=== PATIENT | female | born 1970 | race Caucasian/White ===

== ENCOUNTER 2017-04-16 07:10 | Day surgery (SDC) | payer MEDICARE, MEDICAID ==
[2017-04-16] MEDS ORDERED: Midazolam 1 MG/ML 2 ML SDV IVPUSH ONE (08:10)
[2017-04-16] MEDS ORDERED: Lactated Ringers 1,000 ML IV SCH (08:45)
[2017-04-16] MEDS ORDERED: Propofol 200 MG/20 ML SDV IV ONE (09:00)
[2017-04-16] MEDS ORDERED: Lidocaine 2% 100 MG/5 ML Syringe IVPUSH ONE (09:00)
[2017-04-16] MEDS ORDERED: Midazolam 1 MG/ML 2 ML SDV IV ONE (09:00)
--- NOTE | 2017-04-16 09:03 | PCM.OPNOTE ---
- General Post-Op/Procedure Note Date of Surgery/Procedure: 04/16/17 Operative Procedure(s): egd with bx Findings: gastritis hyperplastic polyps Pre Op Diagnosis: gastritis Post-Op Diagnosis: gastritis. hyperplastic polyps Anesthesia Technique: PARVEEN Primary Surgeon: Kyle Aranda Anesthesia Provider: Franklin Santana Pathology: gastric Complications: None Condition: Good Free Text/Narrative:: see dictation
[2017-04-16 10:10] VITALS: BP 125/78
--- NOTE | 2017-04-16 15:42 | OR ---
DATE OF OPERATION: 04/16/2017 SURGEON: Kyle Aranda MD PROCEDURE PERFORMED: Upper endoscopy with cold forceps biopsy. PREOPERATIVE DIAGNOSIS: Gastritis. POSTOPERATIVE DIAGNOSIS: Gastritis with fundic gland hyperplasia. INDICATIONS FOR PROCEDURE: This is a 47-year-old white female, who has had a longstanding history with epigastric discomfort. She has been on acid suppression with only minimal improvement of her symptoms. She was offered and accepted upper endoscopy. DESCRIPTION OF PROCEDURE: After an excellent IV sedation was administered, the bite block was inserted. The flexible endoscope was passed without difficulty down the patient's esophagus into the stomach. The stomach was insufflated. The scope was passed through the pylorus to the second portion of duodenum and slowly withdrawn. The following findings were noted. Duodenum was unremarkable. Stomach demonstrated diffuse gastritis with linear erythema and very friable mucosa throughout. There are also some very small polyps suggestive of fundic gland hyperplasia, which were biopsied as well. The esophagus was unremarkable. The stomach was deflated, scope was removed, and the patient tolerated the procedure well and was taken to recovery room in good condition. /[id number] /MODL
== END 2017-04-16 10:05 | disposition home or self-care (01) ==
LOC: FB.SDS 07:10
PROVIDERS: ATTEND Surgery
DX: K29.50 Unspecified chronic gastritis without bleeding (principal); K31.7 Polyp of stomach and duodenum; F32.9 Major depressive disorder, single episode, unspecified; K21.9 Gastro-esophageal reflux disease without esophagitis; E66.01 Morbid (severe) obesity due to excess calories; Z68.43 Body mass index [BMI] 50.0-59.9, adult; Z79.899 Other long term (current) drug therapy; Z98.890 Other specified postprocedural states
CPT/HCPCS: 00740; 43239; 81025; 88305; 88342; J2250; J2704; J7120

== ENCOUNTER 2022-03-11 21:51 | Emergency (ER) | payer MEDICARE, MEDICAID ==
[2022-03-11] MEDS ORDERED: Sodium Chloride 0.9% 10 ML Syringe FLUSH PRN (22:22)
[2022-03-11] MEDS ORDERED: Acetaminophen 500 MG Tab PO STA (22:25)
[2022-03-11] MEDS ORDERED: Ondansetron 4 MG/2 ML SDV IVPUSH STA (22:25)
[2022-03-11] MEDS ORDERED: Sodium Chloride 0.9% 1,000 ML IV SCH (22:30)
[2022-03-11 23:08] LABS: ESTIMATED GFR 60 mL/min (>60)
[2022-03-12] MEDS ORDERED: Iopamidol 755 MG/ML 150 ML Bottle IV ONE (00:28)
[2022-03-12] MEDS ORDERED: Sodium Chloride 0.9% 1,000 ML IV ONE (01:00)
[2022-03-12] MEDS ORDERED: Piperacillin/Tazobactam 4.5 GM in Sodium Chloride 0.9% 100 ML IV SCH (03:00)
[2022-03-12] MEDS: Piperacillin/Tazobactam 4.5 GM in Sodium Chloride 0.9% 100 ML IV SCH ×2 (03:26→09:13)
[2022-03-12] MEDS ORDERED: Sodium Chloride 0.9% 1,000 ML IV SCH (07:30)
[2022-03-12 07:40] LABS: ESTIMATED GFR 36 mL/min (>60)
[2022-03-12 11:31] VITALS: BP 99/62; PULSE 85
[2022-03-12] MEDS ORDERED: Potassium Chloride 20 MEQ in Premix Bag 1 BAG IV ONE (11:51)
[2022-03-14 13:09] LABS: LYME TOTAL ANTIBODY EIA Negative (Negative)
== END 2022-03-12 13:05 ==
LOC: FB.ED 21:51
DX: K75.0 Abscess of liver (principal); F99 Mental disorder, not otherwise specified; N17.9 Acute kidney failure, unspecified; K21.9 Gastro-esophageal reflux disease without esophagitis; E86.0 Dehydration; E87.6 Hypokalemia; E66.9 Obesity, unspecified; Z68.30 Body mass index [BMI] 30.0-30.9, adult; Z20.822 Contact with and (suspected) exposure to COVID-19
CPT/HCPCS: 36415; 51702; 71045; 74177; 80053; 81001; 82140; 83605; 83735; 85025; 85610; 86140; 86618; 87040; 96361; 96365; 96366; 96367; 96375; 99285; A9270; J2405; J2543; J3480; J7030; Q9967; U0002

== ENCOUNTER 2022-04-01 10:48 | Emergency (ER) | payer MEDICARE, MEDICAID ==
[2022-04-01 11:42] LABS: ESTIMATED GFR 68 mL/min (>60)
[2022-04-01] MEDS: Sodium Chloride 0.9% 1,000 ML IV ONE (11:51)
[2022-04-01] MEDS: Ondansetron 4 MG/2 ML SDV IVPUSH ONE ×2 (11:51→12:54)
[2022-04-01] MEDS: HYDROmorphone 2 MG/ML SDV IVPUSH ONE ×2 (12:41→14:32)
[2022-04-01] MEDS: Iopamidol 755 MG/ML 150 ML Bottle IV ONE (13:14)
[2022-04-01] MEDS ORDERED: HYDROmorphone 2 MG/ML SDV IVPUSH ONE (14:26)
[2022-04-01 20:10] VITALS: BP 123/76; PULSE 72
== END 2022-04-01 14:50 ==
LOC: FB.ED 10:48
DX: K75.0 Abscess of liver (principal); F79 Unspecified intellectual disabilities; R74.01 Elevation of levels of liver transaminase levels; R93.2 Abnormal findings on diagnostic imaging of liver and biliary tract; E66.9 Obesity, unspecified; Z68.41 Body mass index [BMI] 40.0-44.9, adult
CPT/HCPCS: 36415; 74177; 80053; 85025; 86140; 96361; 96374; 96375; 96376; 99284; 99285; J1170; J2405; J7030; Q9967